=== PATIENT | female | born 1960 | race Caucasian/White ===

== ENCOUNTER 2024-04-25 10:55 | Inpatient (IN) | payer OTHER ==
[2024-04-25] MEDS ORDERED: methylPREDNISolone Sod Succ/PF 125 MG/2 ML VIAL ONE (11:22)
[2024-04-25 12:00] LABS: #Basophils 0.08 10x3/uL (0.0-0.2); #Eosinphils 0.01 10x3/uL (0.0-0.5); #Neutrophils 10.62 10x3/uL (1.5-8.4); %Basophils 0.6 % (0.0-2.0); %Eosinophils 0.1 % (0.0-6.0); %Lymphocytes 10.3 % (18.0-47.0); %Monocytes 6.2 % (0.0-10.0); %Neutrophils 82.5 % (40.0-75.0); Hematocrit 40.9 % (34.9-44.5); Hemoglobin 14.3 g/dL (12.0-15.5); Mean Corpuscular Hemoglobin 31.8 pg (27.0-33.0); Mean Corpuscular Volume 90.9 fL (81.6-98.3); Mean Platelet Volume 8.3 fL (7.4-10.4); Platelet Count 342 10x3/uL (150-450); RBC Distribution Width 11.7 % (11.5-14.5); White Blood Cell (WBC) Count 12.9 10x3/uL (3.5-10.5)
[2024-04-25 12:12] LABS: Anion Gap 18 mmol/L (10-20); BUN (Urea Nitrogen) 6 mg/dL (9.8-20.1); Calc. Creatinine Clearance 0 mL/min (70-130); Calcium 9.7 mg/dL (7.8-10.44); Carbon Dioxide 23 mmol/L (23-31); Chloride 88 mmol/L (98-107); Estimated GFR 99; Glucose 88 mg/dL (80-115); Potassium 3.3 mmol/L (3.5-5.1); Sodium 126 mmol/L (136-145)
[2024-04-25 12:18] LABS: Troponin I Less than 0.010 ng/mL (< 0.028)
[2024-04-25] MEDS ORDERED: Iopamidol 370 76% 100 ML VIAL ONE (12:30)
[2024-04-25] MEDS ORDERED: Azithromycin 500 MG VIAL ONE (12:47)
[2024-04-25] MEDS ORDERED: cefTRIAXone (ROCEPHIN) 1 GM VIAL ONE (12:47)
[2024-04-25] MEDS ORDERED: traMADol HCl 50 MG TAB PO PRN (13:25)
[2024-04-25] MEDS ORDERED: Senokot S 8.6-50 MG TAB PO PRN (13:25)
[2024-04-25] MEDS ORDERED: Acetaminophen 325 MG TAB PO PRN (13:25)
[2024-04-25] MEDS ORDERED: Ondansetron PF 4 MG/2 ML Vial IVP PRN (13:25)
[2024-04-25] MEDS ORDERED: Electrolyte Replacement Protocol 1 EACH FS SCH (13:30)
[2024-04-25 13:55] LABS: Creatinine, Urine 34.34 mg/dL (47-110)
[2024-04-25 14:05] VITALS: BP 146/80; TEMP 97.7
[2024-04-25 14:09] VITALS: BMI 18.8
[2024-04-25] MEDS: Potassium Chloride 20 MEQ TAB PO SCH (15:37)
[2024-04-25] MEDS: methylPREDNISolone Sod Succ 40 MG VIAL IVP SCH (15:37)
[2024-04-25] MEDS: Furosemide 40 MG (4 mL) VIAL SLOW IVP SCH (15:37)
[2024-04-25 16:16] LABS: Sodium, Urine Less than 20 mmol/L (Not Available)
[2024-04-25] MEDS ORDERED: clonazePAM 0.5 MG TAB PO PRN (18:58)
[2024-04-25] MEDS ORDERED: Ipratropium/Albuterol 3 ML NEB EZPAP PRN (19:03)
[2024-04-25] MEDS ORDERED: Benzonatate 100 MG CAP PO PRN (19:04)
[2024-04-25] MEDS ORDERED: methylPREDNISolone Sod Succ 40 MG VIAL IVP SCH (19:15)
[2024-04-25] MEDS ORDERED: LevoFLOXacin 750 mg/D5W 750 MG in Premix 1 BAG IVPB SCH (19:15)
[2024-04-25] MEDS ORDERED: guaiFENesin ER 600 MG TAB PO SCH (21:00)
[2024-04-25] MEDS ORDERED: Famotidine 20 MG TAB PO SCH (21:00)
[2024-04-25] MEDS ORDERED: Amlodipine 5 MG TAB PO SCH (21:00)
[2024-04-26 08:12] LABS: Actual Bicarbonate (HCO3v) 26.7 mEq/L (22-28); Analyzer IN Cardio CS ER; Base Excess 1.3 mEq/L (-2 - +2); Calcium, Ionized (venous) 1.05 mmol/L (1.16-1.32); Chloride (VBG) 88 mmol/L (98-106); Hematocrit-VBG 46 % (36.0-47.0); Hemoglobin (Hb) 15.7 g/dL (11.7-16.0); Potassium (VBG) 3.52 mmol/L (3.70-5.30); Puncture Site Other Site; RapidComm Collect By lab; Sodium 128 mmol/L (133-146); pH (venous) 7.393 (7.32-7.43)
[2024-04-26] MEDS ORDERED: Enoxaparin 40 MG (0.4 mL) SYRINGE SC SCH (09:00)
[2024-04-26] MEDS ORDERED: Nicotine 21 MG PATCH TD SCH (09:00)
[2024-04-26] MEDS ORDERED: Pantoprazole DR 40 MG TAB PO SCH (09:00)
[2024-04-26] MEDS ORDERED: cefTRIAXone\\ROCEPHIN 1 GM in Sodium Chloride 0.9% 100 ML IVPB SCH (12:00)
[2024-04-26] MEDS ORDERED: Azithromycin 500 MG in Sodium Chloride 0.9% 250 ML 250 ML IVPB SCH (12:00)
== END 2024-04-25 18:10 | disposition short-term general hospital (02) | DRG 194 ==
LOC: CSHERS 10:55 → CSHTELE 14:03
PROVIDERS: ADMIT Family Medicine; ATTEND Family Medicine
DX: J18.9 Pneumonia, unspecified organism (principal); C85.92 Non-Hodgkin lymphoma, unspecified, intrathoracic lymph nodes; E87.1 Hypo-osmolality and hyponatremia; J44.0 Chronic obstructive pulmonary disease with (acute) lower respiratory infection; J90 Pleural effusion, not elsewhere classified; I10 Essential (primary) hypertension; F17.210 Nicotine dependence, cigarettes, uncomplicated; K21.9 Gastro-esophageal reflux disease without esophagitis; Z71.6 Tobacco abuse counseling; Z90.721 Acquired absence of ovaries, unilateral; Z88.8 Allergy status to other drugs, medicaments and biological substances; Z88.2 Allergy status to sulfonamides
CPT/HCPCS: 36415; 71045; 71260; 80048; 82570; 82805; 83880; 83930; 83935; 84300; 84443; 84484; 85025; 93005; 96365; 96375; J0456; J0696; J1940; J2919; Q9967